=== PATIENT | male | born 1965 | race African-American/Black ===

== ENCOUNTER 2023-09-16 | Emergency (ER) | payer OTHER ==
[~2023-09-16] VITALS: Ht 172.7 cm; Wt 90.9 kg
[~2023-09-16] MED LIST: AMLO-258 PO; HYDR50TA37 PO; LISI-894 PO
[2023-09-16 00:14] VITALS: TEMP 98.4
[2023-09-16 00:30] LABS: EOSINOPHILS % (AUTO) 4.3 % (1.0-6.0); HEMATOCRIT 40.3 % (41-53); HEMOGLOBIN 13.3 g/dL (13.5-17.5); LYMPHOCYTES % (AUTO) 29.5 % (22.0-44.0); MEAN CORPUSCULAR HEMOGLOBIN 28.4 pg (26.0-34.0); MEAN CORPUSCULAR HGB CONC 32.9 G/dL (31.0-37.0); MEAN CORPUSCULAR VOLUME 87 fL (80-100); MONOCYTES # (AUTO) 0.9 K/uL (0.1-1.0); MONOCYTES % (AUTO) 9.2 % (2.0-9.0); NEUTROPHILS # (AUTO) 5.6 K/uL (1.8-7.7); PLATELET COUNT (AUTO) 285 K/uL (150-450); RED BLOOD CELL COUNT(AUTO) 4.66 MIL/uL (4.50-5.90); RED CELL DISTRIBUTION WIDTH 12.7 % (11.5-14.5)
[2023-09-16 00:39] LABS: ANION GAP 10 mmol/L (8-16); CALCIUM, TOTAL 9.4 mg/dL (8.8-10.5); CARBON DIOXIDE 30 mmol/L (22-29); CHLORIDE 100 mmol/L (98-107); CREATININE 1.03 mg/dL (0.60-1.30); GLOMERULAR FILTR. RATE CALC > 60 mL/min (>60); GLUCOSE,RANDOM 106 mg/dL (70-110); POTASSIUM 3.9 mmol/L (3.5-5.1); SODIUM SERUM 140 mmol/L (136-145); UREA NITROGEN, BLOOD 13 mg/dL (7-18)
[2023-09-16 00:44] LABS: PROTHROMBIN TIME 10.7 SEC (9.4-11.6)
[2023-09-16 00:46] LABS: TROPONIN I-HIGH SENSITIVITY 14 ng/L (<76)
[2023-09-16 00:47] LABS: ALANINE AMINOTRANSFERASE 44 U/L (12-78); ALBUMIN 3.5 g/dL (3.4-5.0); ALKALINE PHOSPHATASE 77 U/L (46-116); ASPARTATE AMINOTRANSFERASE 21 U/L (15-37); BILIRUBIN,TOTAL 0.6 mg/dL (0.1-1.0); CREATINE KINASE, TOTAL ONLY 167 U/L (39-308); TOTAL PROTEIN, SERUM 7.7 g/dL (6.4-8.2)
[2023-09-16 00:59] LABS: APPEARANCE,URINE CLEAR (CLEAR); BILIRUBIN,URINE NEGATIVE (NEGATIVE); COLOR,URINE YELLOW (YELLOW); GLUCOSE, URINE (UA) NEGATIVE (NEGATIVE); KETONES,URINE NEGATIVE (NEGATIVE); LEUKOCYTE ESTERASE ,URINE NEGATIVE (NEGATIVE); NITRATE,URINE NEGATIVE (NEGATIVE); OCCULT BLOOD,URINE NEGATIVE (NEGATIVE); PROTEIN,URINE TRACE mg/dL (NEGATIVE); SPECIFIC GRAVITIY, URINE 1.025 (1.003-1.030); UROBILINOGEN,URINE <=1.0 mg/dL (<=1.0)
[2023-09-16 01:11] LABS: B-TYPE NATRIURETIC PEPTIDE 29 pg/mL (0-100)
[2023-09-16] MEDS ORDERED: HYDR50TA37 PO (01:26)
[2023-09-16] MEDS ORDERED: LISI-894 PO (01:26)
[2023-09-16] MEDS ORDERED: AMLO-258 PO (01:26)
[2023-09-16 01:31] VITALS: BP 153/97; PULSE 65; RESP 19
[2023-09-16] MEDS: AmLODIPine BESYLATE 10 MG TABLET PO ONE (01:31)
== END 2023-09-16 01:40 | disposition home or self-care (01) ==
LOC: EMS 00:01
DX: I10 Essential (primary) hypertension (principal); Z98.890 Other specified postprocedural states
CPT/HCPCS: 71045; 80053; 81003; 82550; 83880; 84484; 85025; 85610; 85730; 93005; 99285; 36415-L1; 36415-TC

== ENCOUNTER 2024-07-05 16:42 | Inpatient (IN) | payer OTHER ==
[~2024-07-05] VITALS: Ht 172.7 cm; Wt 91.0 kg
[2024-07-05] MEDS ORDERED: MOME220A5 IH (16:46)
[2024-07-05] MEDS: IPRATROPIUM BROMIDE 0.5 MG/2.5 ML NEB SOLUTION NEB ONE (16:48)
[2024-07-05] MEDS: ALBUTEROL SULFATE 2.5 MG/0.5 ML 5 ML NEB SOLUTION NEB ONE (16:48)
[2024-07-05 16:50] VITALS: PULSE 82; RESP 14; O2SAT 100
[2024-07-05] MEDS: MethylPREDNISolone SOD SUCC 125 MG/2 ML VIAL IVP ONE (16:51)
[2024-07-05 17:09] LABS: COVID AG,FIA SOURCE NASAL SWAB
[2024-07-05 17:11] LABS: BASOPHILS % (AUTO) 0.5 % (0.0-2.0); EOSINOPHILS % (AUTO) 6.1 % (1.0-6.0); HEMATOCRIT 41.8 % (41-53); HEMOGLOBIN 13.7 g/dL (13.5-17.5); LYMPHOCYTES # (AUTO) 2.7 K/uL (1.0-4.8); LYMPHOCYTES % (AUTO) 24.9 % (22.0-44.0); MEAN CORPUSCULAR HEMOGLOBIN 28.8 pg (26.0-34.0); MEAN CORPUSCULAR HGB CONC 32.7 G/dL (31.0-37.0); MEAN CORPUSCULAR VOLUME 88 fL (80-100); MONOCYTES # (AUTO) 1.2 K/uL (0.1-1.0); MONOCYTES % (AUTO) 10.7 % (2.0-9.0); NEUTROPHILS # (AUTO) 6.4 K/uL (1.8-7.7); NEUTROPHILS % (AUTO) 57.8 % (40.0-70.0); PLATELET COUNT (AUTO) 276 K/uL (150-450); RED BLOOD CELL COUNT(AUTO) 4.73 MIL/uL (4.50-5.90); RED CELL DISTRIBUTION WIDTH 12.9 % (11.5-14.5)
[2024-07-05] MEDS: HydrALAZINE HCL 20 MG/ML VIAL IVP ONE (17:11)
[2024-07-05 17:19] LABS: ANION GAP 10 mmol/L (8-16); CALCIUM, TOTAL 8.7 mg/dL (8.8-10.5); CARBON DIOXIDE 30 mmol/L (22-29); CHLORIDE 104 mmol/L (98-107); CREATININE 1.12 mg/dL (0.60-1.30); GLOMERULAR FILTR. RATE CALC > 60 mL/min (>60); GLUCOSE,RANDOM 102 mg/dL (70-110); POTASSIUM 4.1 mmol/L (3.5-5.1); SODIUM SERUM 144 mmol/L (136-145); UREA NITROGEN, BLOOD 11 mg/dL (7-18)
[2024-07-05 17:27] LABS: SARS-COV2 (COVID) ANTIGEN,FIA Negative (Negative)
[2024-07-05 17:27] LABS: TROPONIN I-HIGH SENSITIVITY 21 ng/L (<76)
[2024-07-05 17:28] LABS: CREATINE KINASE, TOTAL ONLY 236 U/L (39-308)
[2024-07-05 17:28] LABS: INFLUENZA TYPE A NEGATIVE FOR TYPE A (NEGATIVE); INFLUENZA TYPE B NEGATIVE FOR TYPE B (NEGATIVE)
[2024-07-05 17:32] LABS: B-TYPE NATRIURETIC PEPTIDE 24 pg/mL (0-100)
[2024-07-05 18:00] VITALS: PULSE 104; RESP 16; O2SAT 100
[2024-07-05] MEDS ORDERED: CloNIDine HCL 0.1 MG TABLET PO PRN (18:45)
[2024-07-05] MEDS ORDERED: ONDANSETRON HCL 4 MG/2 ML VIAL IVP PRN (18:45)
[2024-07-05] MEDS ORDERED: MAGNESIUM HYDROXIDE SUSPENSION 30 ML UDCUP PO PRN (18:45)
[2024-07-05] MEDS ORDERED: ZOLPIDEM TARTRATE 5 MG TABLET PO PRN (18:45)
[2024-07-05] MEDS: DOCUSATE SODIUM 100 MG CAPSULE PO SCH (21:00)
[2024-07-05 21:01] VITALS: BP 141/88; PULSE 92; RESP 18; TEMP 98.4; O2SAT 99
[2024-07-05] MEDS: LOSARTAN POTASSIUM 25 MG TABLET PO SCH (21:02)
[2024-07-05 22:55] VITALS: PULSE 85; RESP 20; O2SAT 94
[2024-07-05] MEDS: ALBUTEROL SULFATE 2.5 MG/0.5 ML NEB SOLUTION NEB PRN (22:55)
[2024-07-05 23:10] VITALS: PULSE 83; RESP 20; O2SAT 96
[2024-07-05 23:43] VITALS: BP 145/89; PULSE 83; RESP 18; TEMP 97.9; O2SAT 96
[2024-07-05] MEDS: ACETAMINOPHEN 325 MG TABLET PO PRN (23:46)
[2024-07-05] MEDS: MethylPREDNISolone SOD SUCC 125 MG/2 ML VIAL IVP SCH (23:46)
[2024-07-06] VITALS (7 sets, daily range): BP systolic 147–175; BP diastolic 79–103; PULSE 67–97; RESP 18; TEMP 97.5–98.2; O2SAT 96–100
[2024-07-06 00:36] LABS: TROPONIN I-HIGH SENSITIVITY 34 ng/L (<76)
[2024-07-06 01:12] LABS: APPEARANCE,URINE CLEAR (CLEAR); BILIRUBIN,URINE NEGATIVE (NEGATIVE); COLOR,URINE YELLOW (YELLOW); GLUCOSE, URINE (UA) 150-200 mg/dL (NEGATIVE); KETONES,URINE TRACE mg/dL (NEGATIVE); LEUKOCYTE ESTERASE ,URINE NEGATIVE (NEGATIVE); NITRATE,URINE NEGATIVE (NEGATIVE); OCCULT BLOOD,URINE NEGATIVE (NEGATIVE); PROTEIN,URINE NEGATIVE (NEGATIVE); SPECIFIC GRAVITIY, URINE 1.021 (1.003-1.030)
[2024-07-06 01:18] LABS: BACTERIA,URINE None Seen /HPF (None Seen); RBC,URINE None Seen /HPF (0-2); SQUAMOUS EPITHELIAL CELL,UR Few /LPF (None Seen); WBC,URINE None Seen /HPF (0-5)
[2024-07-06 01:19] LABS: ALCOHOL, URINE DRUG SCREEN NEGATIVE (NEGATIVE); AMPHET/METH SCREEN,URINE NEGATIVE (NEGATIVE); BARBITURATE SCREEN, URINE NEGATIVE (NEGATIVE); BENZODIAZEPINES SCREEN,URINE NEGATIVE (NEGATIVE); CANNABINOID SCREEN,URINE NEGATIVE (NEGATIVE); COCAINE SCREEN,URINE NEGATIVE (NEGATIVE); METHADONE SCREEN, URINE NEGATIVE (NEGATIVE); OPIATE SCREEN,URINE NEGATIVE (NEGATIVE); PHENCYCLIDINE SCREEN,URINE NEGATIVE (NEGATIVE)
[2024-07-06 07:11] LABS: ANION GAP 11 mmol/L (8-16); CALCIUM, TOTAL 8.5 mg/dL (8.8-10.5); CARBON DIOXIDE 25 mmol/L (22-29); CHLORIDE 104 mmol/L (98-107); CREATININE 0.92 mg/dL (0.60-1.30); GLOMERULAR FILTR. RATE CALC > 60 mL/min (>60); GLUCOSE,RANDOM 146 mg/dL (70-110); POTASSIUM 3.8 mmol/L (3.5-5.1); SODIUM SERUM 140 mmol/L (136-145); UREA NITROGEN, BLOOD 10 mg/dL (7-18)
[2024-07-06 07:21] LABS: BASOPHILS % (AUTO) 0.1 % (0.0-2.0); EOSINOPHILS % (AUTO) 0 % (1.0-6.0); HEMATOCRIT 42.6 % (41-53); HEMOGLOBIN 13.8 g/dL (13.5-17.5); LYMPHOCYTES # (AUTO) 1.1 K/uL (1.0-4.8); LYMPHOCYTES % (AUTO) 8.3 % (22.0-44.0); MEAN CORPUSCULAR HEMOGLOBIN 28.3 pg (26.0-34.0); MEAN CORPUSCULAR HGB CONC 32.3 G/dL (31.0-37.0); MEAN CORPUSCULAR VOLUME 88 fL (80-100); MONOCYTES # (AUTO) 0.2 K/uL (0.1-1.0); MONOCYTES % (AUTO) 1.5 % (2.0-9.0); NEUTROPHILS # (AUTO) 11.7 K/uL (1.8-7.7); PLATELET COUNT (AUTO) 271 K/uL (150-450); RED BLOOD CELL COUNT(AUTO) 4.87 MIL/uL (4.50-5.90); RED CELL DISTRIBUTION WIDTH 13.2 % (11.5-14.5)
[2024-07-06 07:22] LABS: NEUTROPHILS % (AUTO) 90.1 % (40.0-70.0)
[2024-07-06] MEDS: FAMOTIDINE 20 MG TABLET PO SCH (08:49)
[2024-07-06] MEDS: HydrALAZINE HCL 20 MG/ML VIAL IVP PRN (10:33)
[2024-07-06] MEDS: PredniSONE 20 MG TABLET PO SCH (13:28)
[2024-07-06] MEDS: AmLODIPine BESYLATE 5 MG TABLET PO SCH (13:28)
[2024-07-07 01:43] VITALS: BP 169/100
[2024-07-07 02:38] VITALS: BP 145/85
[2024-07-07 05:11] VITALS: BP 151/85; PULSE 75; RESP 17; TEMP 97.9; O2SAT 95
[2024-07-07 06:21] VITALS: BP 154/96; PULSE 76; RESP 18; TEMP 98.2; O2SAT 95
[2024-07-07 07:07] VITALS: BP 154/99; PULSE 70; RESP 18; TEMP 98.3; O2SAT 97
[2024-07-07 11:00] VITALS: BP 140/88; PULSE 85; RESP 18; TEMP 98.9; O2SAT 95
[2024-07-07] MEDS ORDERED: ALBU18HF12 IH (12:41)
[2024-07-07] MEDS ORDERED: AMLO-258 PO (12:41)
[2024-07-07] MEDS ORDERED: LOSA-381 PO (12:42)
== END 2024-07-07 14:15 | disposition home or self-care (01) | DRG 202 ==
LOC: EMS 16:42 → EDH 18:35 → 5N 20:30
PROVIDERS: ADMIT Internal Medicine; ATTEND Internal Medicine
DX: J45.901 Unspecified asthma with (acute) exacerbation (principal); J96.01 Acute respiratory failure with hypoxia; I16.1 Hypertensive emergency; I10 Essential (primary) hypertension; Z20.822 Contact with and (suspected) exposure to COVID-19
CPT/HCPCS: 71045; 80048; 80307; 81001; 82550; 83880; 84484; 85025; 87804; 93005; 94640; 94644; 99285; J0360; J2919; 36415-L1; 36415-TC